=== PATIENT | female | born 1935 | race Caucasian/White ===

== ENCOUNTER 2016-12-12 09:22 | Outpatient (CLI) | payer MEDICARE | END 2016-12-12 09:23 | disposition home or self-care (01) | DX: E87.6 Hypokalemia (principal); E78.5 Hyperlipidemia, unspecified; R00.2 Palpitations; I10 Essential (primary) hypertension ==

== ENCOUNTER 2017-04-10 10:10 | Outpatient (CLI) | payer MEDICARE ==
--- NOTE | 2017-04-11 18:11 | Mammography Report ---
DIGITAL SCREENING MAMMOGRAM: 04/10/2017 CLINICAL INDICATION: An 81-year-old with history of benign cyst aspirations for screening. COMPARISON: 02/2016, 07/2014, 12/2013, 06/2013, 05/2013, 03/2012, 03/2011, 03/2010. TECHNIQUE: Routine CC and MLO projections were obtained of the breasts. The breasts again demonstrate heterogeneously dense fibroglandular parenchyma bilaterally. Coarse an d punctate, typically benign calcifications are present. No suspicious masses, clustered microcalcif ications, or regions of architectural distortion are identified. IMPRESSION: BENIGN FINDINGS. RECOMMENDATION: ROUTINE ANNUAL SCREENING UNLESS OTHERWISE CLINICALLY INDICATED. BIRADS CATEGORY: 2, BENIGN FINDINGS. STANDARD QUALIFYING STATEMENTS 1. This examination was reviewed with the aid of Computed-Aided Detection (CAD). 2. A negative or benign imaging report should not delay biopsy if clinically suspicious findings are present. Consider surgical consultation if warranted. More than 5% of cancers are not identified b y imaging. 3. Dense breasts may obscure an underlying neoplasm. JOB #: [id number] EXT JOB #:[id number]
== END 2017-04-10 10:11 | disposition home or self-care (01) ==
LOC: DI.S 10:10
PROVIDERS: ATTEND Family Medicine
DX: Z12.31 Encounter for screening mammogram for malignant neoplasm of breast (principal)
CPT/HCPCS: 77067

== ENCOUNTER 2018-05-23 10:07 | Outpatient (CLI) | payer MEDICARE ==
--- NOTE | 2018-05-24 13:37 | Mammography Report ---
Reason: SCREENING MAMMO Procedure Date: 05/23/2018 Accession Number: [id number] / [id number] Procedure: MGS - Screening Mammo Dig Bilat CPT Code: FULL RESULT: EXAM: Screening Mammo Dig Bilat DATE: 05/23/2018 10:26 AM CLINICAL HISTORY: 82-year-old female with history of left breast cyst aspiration. TECHNIQUE: Bilateral CC and MLO views were obtained. COMPARISON: 06/13 2013, 12/27/2013, 07/31/2014, 02/23/2016, 04/10/2017. FINDINGS: The breasts demonstrate heterogeneously dense fibroglandular parenchyma bilaterally. Typically benign coarse calcifications are identified bilaterally. No suspicious masses, clustered microcalcifications, or regions of architectural distortion are identified. IMPRESSION: Benign findings RECOMMENDATION: Routine annual screening unless otherwise clinically indicated. BIRADS CATEGORY 2: Benign findings STANDARD QUALIFYING STATEMENTS: 1. This examination was reviewed with the aid of Computer-Aided Detection (CAD). 2. A negative or benign imaging report should not delay biopsy if clinically suspicious findings are present. Consider surgical consultation if warrented. More than 5% of cancers are not identified by imaging. 3. Dense breasts may obscure an underlying neoplasm. 4. This examination was reviewed without the aid of 3D breast imaging (tomosynthesis).
== END 2018-05-23 10:08 | disposition home or self-care (01) ==
LOC: DI.S 10:07
DX: Z12.31 Encounter for screening mammogram for malignant neoplasm of breast (principal)
CPT/HCPCS: 77067

== ENCOUNTER 2018-08-22 08:54 | Outpatient (CLI) | payer MEDICARE ==
[2018-08-22 12:36] LABS: BASOPHILS % (AUTO) 1.1 %; EOSINOPHILS # (AUTO) 0.1 10^3/uL (0.0-0.7); EOSINOPHILS % (AUTO) 2.4 %; LYMPHOCYTES # (AUTO) 1.4 10^3/uL (1.5-3.5); LYMPHOCYTES % (AUTO) 32.3 %; MEAN CORPUSCULAR HGB CONC 33.7 g/dL (32.0-36.0); MEAN CORPUSCULAR VOLUME 91.9 fL (81.0-99.0); MONOCYTES # (AUTO) 0.4 10^3/uL (0.0-1.0); MONOCYTES % (AUTO) 9.8 %; NEUTROPHILS # (AUTO) 2.4 10^3/uL (1.5-6.6); NEUTROPHILS % (AUTO) 54.4 %; PLT - PLATELET COUNT 265 10^3/uL (130-450); RED CELL DISTRIBUTION WIDTH 13.4 % (12.0-15.0); WHITE BLOOD COUNT 4.4 x10^3/uL (4.8-10.8)
[2018-08-22 12:53] LABS: ALBUMIN/GLOBULIN RATIO 1.7 (1.0-2.2); ALKALINE PHOSPHATASE 49 IU/L (42-121); ALT ALANINE AMINOTRANSFERASE 20 IU/L (10-60); AST ASPARTATE AMINOTRANSFERASE 22 IU/L (10-42); BILIRUBIN,TOTAL 0.7 mg/dL (0.2-1.0); BUN - BLOOD UREA NITROGEN 12 mg/dL (6-20); CARBON DIOXIDE - CO2 29 mmol/L (21-32); CHLORIDE 97 mmol/L (101-111); CHOL/HDL RATIO 2.8 (<4.4); CHOLESTEROL 209 mg/dL; CREATININE 0.6 mg/dL (0.4-1.0); GFR - MDRD 96 (>89); GLUCOSE 98 mg/dL (70-100); HDL CHOLESTEROL 74 mg/dL; LDL CHOLESTEROL,CALCULATED 125 mg/dL; LDL/HDL RATIO 1.7 (<4.4); SODIUM 133 mmol/L (135-145); TOTAL PROTEIN 6.4 g/dL (6.7-8.2); VLDL CHOLESTEROL 10 mg/dL
== END 2018-08-22 08:55 | disposition home or self-care (01) ==
LOC: LAB.F 08:54
PROVIDERS: ATTEND Family Medicine
DX: I10 Essential (primary) hypertension (principal); E78.5 Hyperlipidemia, unspecified
CPT/HCPCS: 36415; 80053; 80061; 83721; 85025

== ENCOUNTER 2019-05-07 17:29 | Emergency (ER) | payer MEDICARE ==
[2019-05-07] MEDS ORDERED: cloNIDine 0.1 MG TABLET PO STA (18:25)
--- NOTE | 2019-05-07 18:26 | ED Physician Documentation ---
PD HPI CHEST PAIN - Stated complaint Stated Complaint: UP & DOWN BP - Chief complaint Chief Complaint: Cardiac - History obtained from History obtained from: Patient - History of Present Illness Timing - onset: Today (83-year-old woman with history of hypertension, maintained on metoprolol 12.5 mg twice daily and lisinopril/ hydrochlorothiazide. She is noted high blood pressures at home today associated with a cottony feeling in her head and a strange feeling in her chest without chest pain or trouble breathing. 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 : None HEENT: None Psych: None Musculoskeletal: None Derm: None - Past Surgical History Past Surgical History: Yes General: Appendectomy - Present Medications Home Medications: Ambulatory Orders Medication Instructions Recorded Confirmed Aspirin 81 mg PO DAILY 02/23/14 06/26/16 Lisinopril/Hydrochlorothiazide 10 mg PO DAILY 04/12/15 06/26/16 [Lisinopril-Hctz 10-12.5 mg Tab] Metoprolol Tartrate 25 mg PO BID 06/26/16 06/26/16 Potassium Chloride 10 mg PO DAILY 06/26/16 06/26/16 cloNIDine [Catapres] 0.1 mg PO ONCE PRN #15 tablet 05/07/19 - Allergies Allergies/Adverse Reactions: Allergies Allergy/AdvReac Type Severity Reaction Status Date / Time No Known Drug Allergies Allergy Verified 05/07/19 17:39 - Social History Does the pt smoke?: No Smoking Status: Never smoker Does the pt drink ETOH?: Yes Does the pt have substance abuse?: No - Immunizations Immunizations are current?: Yes - POLST Patient has POLST: No PD ED PE NORMAL - Vitals Vital signs reviewed: Yes - General General: Alert and oriented X 3, No acute distress - HEENT HEENT: PERRL, EOMI - Neck Neck: Supple, no meningeal sign, No bony TTP - Cardiac Cardiac: RRR (With frequent extrasystoles), No murmur - Respiratory Respiratory: No respiratory distress, Clear bilaterally - Abdomen Abdomen: Non tender - Extremities Extremities: No edema, No calf tenderness / cord - Neuro Neuro: Alert and oriented X 3, Normal speech Results - Vitals Vitals: Vital Signs - 24 hr 05/07/19 05/07/19 17:39 18:46 Temperature 36.5 C 36.5 C Heart Rate 80 82 Respiratory 16 14 Rate Blood Pressure 220/72 H 168/80 H O2 Saturation 97 97 Oxygen O2 Source Room air - EKG (time done) 1743 Rate: Rate (enter#) (84) Rhythm: NSR (With frequent PVCs, also note frequent PACs on the monitor.) [place]: Normal Intervals: Normal [place] QRS: Normal Ischemia: Normal ST segments - Labs Labs: Laboratory Tests 05/07/19 05/07/19 05/07/19 18:26 18:26 18:26 WBC 7.8 RBC 4.85 Hgb 14.5 Hct 44.3 MCV 91.3 MCH 29.9 MCHC 32.7 RDW 13.2 Plt Count 252 MPV 9.7 Neut # (Auto) 5.5 Lymph # (Auto) 1.6 [place] # (Auto) 0.6 Eos # (Auto) 0.1 Baso # (Auto) 0.0 Absolute Nucleated RBC 0.00 Nucleated RBC % 0.0 Sodium 136 Potassium 4.0 Chloride 96 L Carbon Dioxide 30 Anion Gap 10.0 BUN 17 Creatinine 0.6 Estimated GFR (MDRD) 96 Glucose 115 H Calcium 9.4 Total Bilirubin 0.5 AST 19 ALT 18 Alkaline Phosphatase 58 Troponin I High Sens 4.8 Total Protein 7.1 Albumin 4.2 Globulin 2.9 Albumin/Globulin Ratio 1.4 Lipase 56 H PD MEDICAL DECISION MAKING - ED course ED course: 83-year-old woman with symptomatic high blood pressure, feeling better after 0.1 mg of clonidine here. If it becomes a recurrent issue I discussed with him that they can talk with her doctor about testing for pheochromocytoma. Did not want to add a new scheduled medication or increase her current medications because sometimes she has normal blood pressures at home. Departure - Departure Disposition: 01 Home, Self Care Clinical Impression: Premature ventricular beat Hypertension Qualifiers: Hypertension type: essential hypertension Qualified Code(s): I10 - Essential (primary) hypertension Condition: Good Record reviewed to determine appropriate education?: Yes Instructions: ED HTN Established Prescriptions: cloNIDine [Catapres] 0.1 mg PO ONCE PRN #15 tablet PRN Reason: hypertension Comments: As discussed, you can add the clonidine for when you have systolic blood pressure greater than 170 and you feel bad. If you are having persistent problems follow-up with Dr. Solis for further evaluation and treatment. Return for new worsening symptoms.
[2019-05-07 18:32] LABS: BASOPHILS % (AUTO) 0.5 %; EOSINOPHILS # (AUTO) 0.1 10^3/uL (0.0-0.7); EOSINOPHILS % (AUTO) 0.6 %; HGB - HEMOGLOBIN 14.5 g/dL (12.0-16.0); LYMPHOCYTES # (AUTO) 1.6 10^3/uL (1.5-3.5); LYMPHOCYTES % (AUTO) 20.8 %; MEAN CORPUSCULAR HEMOGLOBIN 29.9 pg (27.0-31.0); MEAN CORPUSCULAR HGB CONC 32.7 g/dL (32.0-36.0); MEAN CORPUSCULAR VOLUME 91.3 fL (81.0-99.0); MEAN PLATELET VOLUME 9.7 fL (7.9-10.8); MONOCYTES # (AUTO) 0.6 10^3/uL (0.0-1.0); MONOCYTES % (AUTO) 7.5 %; NEUTROPHILS # (AUTO) 5.5 10^3/uL (1.5-6.6); NEUTROPHILS % (AUTO) 70.3 %; PLT - PLATELET COUNT 252 10^3/uL (130-450); RED BLOOD COUNT 4.85 10^6/uL (4.20-5.40); RED CELL DISTRIBUTION WIDTH 13.2 % (12.0-15.0); WHITE BLOOD COUNT 7.8 x10^3/uL (4.8-10.8)
[2019-05-07 18:46] LABS: ALBUMIN 4.2 g/dL (3.2-5.5); ALBUMIN/GLOBULIN RATIO 1.4 (1.0-2.2); BILIRUBIN,TOTAL 0.5 mg/dL (0.2-1.0); CALCIUM 9.4 mg/dL (8.5-10.3); CREATININE 0.6 mg/dL (0.4-1.0); TOTAL PROTEIN 7.1 g/dL (6.7-8.2)
[2019-05-07 19:24] VITALS: BP 137/77
== END 2019-05-07 19:28 | disposition home or self-care (01) ==
LOC: ED 17:29
DX: I49.1 Atrial premature depolarization (principal); I10 Essential (primary) hypertension; Z79.82 Long term (current) use of aspirin
CPT/HCPCS: 36415; 80053; 83690; 84484; 85025; 93005; 99283; 99284; A9270

== ENCOUNTER 2019-06-17 08:30 | Outpatient (CLI) | payer MEDICARE | END 2019-06-17 23:59 | disposition home or self-care (01) | LOC: LAB.R 08:30 | PROVIDERS: ATTEND Family Medicine | DX: I10 Essential (primary) hypertension (principal) | CPT/HCPCS: 81599; 82384 ==

== ENCOUNTER 2020-11-17 07:53 | Outpatient (CLI) | payer MEDICARE ==
[2020-11-17 15:03] LABS: BASOPHILS % (AUTO) 0.8 %; EOSINOPHILS # (AUTO) 0.1 10^3/uL (0.0-0.7); EOSINOPHILS % (AUTO) 1.7 %; HCT - HEMATOCRIT 43.3 % (37.0-47.0); HGB - HEMOGLOBIN 14.1 g/dL (12.0-16.0); LYMPHOCYTES # (AUTO) 1.7 10^3/uL (1.5-3.5); LYMPHOCYTES % (AUTO) 32.1 %; MEAN CORPUSCULAR HEMOGLOBIN 29.9 pg (27.0-31.0); MEAN CORPUSCULAR HGB CONC 32.6 g/dL (32.0-36.0); MEAN CORPUSCULAR VOLUME 91.7 fL (81.0-99.0); MEAN PLATELET VOLUME 11.1 fL (7.9-10.8); MONOCYTES # (AUTO) 0.5 10^3/uL (0.0-1.0); MONOCYTES % (AUTO) 8.8 %; NEUTROPHILS % (AUTO) 56.4 %; PLT - PLATELET COUNT 289 10^3/uL (130-450); RED BLOOD COUNT 4.72 10^6/uL (4.20-5.40); RED CELL DISTRIBUTION WIDTH 12.8 % (12.0-15.0); WHITE BLOOD COUNT 5.2 x10^3/uL (4.8-10.8)
[2020-11-17 15:36] LABS: ALBUMIN/GLOBULIN RATIO 1.4 (1.0-2.2); ALKALINE PHOSPHATASE 53 IU/L (42-121); ALT ALANINE AMINOTRANSFERASE 17 IU/L (10-60); AST ASPARTATE AMINOTRANSFERASE 17 IU/L (10-42); BILIRUBIN,TOTAL 0.9 mg/dL (0.2-1.0); BUN - BLOOD UREA NITROGEN 16 mg/dL (6-20); CALCIUM 9.3 mg/dL (8.5-10.3); CARBON DIOXIDE - CO2 28 mmol/L (21-32); CHLORIDE 99 mmol/L (101-111); CHOL/HDL RATIO 3.4 (<4.4); CHOLESTEROL 236 mg/dL; CREATININE 0.5 mg/dL (0.4-1.0); GFR - MDRD 118 (>89); GLUCOSE 108 mg/dL (70-100); HDL CHOLESTEROL 69 mg/dL; LDL CHOLESTEROL,CALCULATED 147 mg/dL; LDL/HDL RATIO 2.1 (<4.4); POTASSIUM 3.9 mmol/L (3.5-5.0); SODIUM 135 mmol/L (135-145); TOTAL PROTEIN 6.9 g/dL (6.7-8.2); TRIGLYCERIDES 98 mg/dL; VLDL CHOLESTEROL 20 mg/dL
[2020-11-17 15:37] LABS: THYROID STIMULATING HORMONE 1.1 uIU/mL (0.34-5.60)
== END 2020-11-17 07:54 | disposition home or self-care (01) ==
LOC: LAB.S 07:53
PROVIDERS: ATTEND Registered Nurse
DX: E87.6 Hypokalemia (principal); R01.1 Cardiac murmur, unspecified; R00.2 Palpitations; I10 Essential (primary) hypertension; E78.5 Hyperlipidemia, unspecified
CPT/HCPCS: 36415; 80053; 80061; 83721; 84443; 85025

== ENCOUNTER 2021-05-07 07:41 | Outpatient (CLI) | payer MEDICARE ==
[2021-05-07 16:00] LABS: THYROID STIMULATING HORMONE 1.63 uIU/mL (0.34-5.60)
== END 2021-05-07 07:42 | disposition home or self-care (01) ==
LOC: LAB.S 07:41
PROVIDERS: ATTEND Internal Medicine
DX: R03.0 Elevated blood-pressure reading, without diagnosis of hypertension (principal)
CPT/HCPCS: 36415; 82533; 84443

== ENCOUNTER 2021-05-12 09:45 | Outpatient (CLI) | payer MEDICARE | END 2021-05-12 09:46 | disposition critical access hospital (66) | LOC: EMS 09:45 | DX: I10 Essential (primary) hypertension (principal); R42 Dizziness and giddiness | CPT/HCPCS: A0425; A0426; A0429 ==

== ENCOUNTER 2021-05-12 10:20 | Emergency (ER) | payer MEDICARE ==
[2021-05-12 11:02] LABS: BASOPHILS % (AUTO) 0.4 %; EOSINOPHILS # (AUTO) 0.1 10^3/uL (0.0-0.7); EOSINOPHILS % (AUTO) 1.3 %; HCT - HEMATOCRIT 40.5 % (37.0-47.0); HGB - HEMOGLOBIN 13.5 g/dL (12.0-16.0); LYMPHOCYTES # (AUTO) 1.3 10^3/uL (1.5-3.5); LYMPHOCYTES % (AUTO) 28.5 %; MEAN CORPUSCULAR HEMOGLOBIN 29.7 pg (27.0-31.0); MEAN CORPUSCULAR HGB CONC 33.3 g/dL (32.0-36.0); MEAN PLATELET VOLUME 9.4 fL (7.9-10.8); MONOCYTES # (AUTO) 0.6 10^3/uL (0.0-1.0); MONOCYTES % (AUTO) 12.6 %; NEUTROPHILS # (AUTO) 2.5 10^3/uL (1.5-6.6); PLT - PLATELET COUNT 232 10^3/uL (130-450); RED BLOOD COUNT 4.55 10^6/uL (4.20-5.40); RED CELL DISTRIBUTION WIDTH 12.6 % (12.0-15.0); WHITE BLOOD COUNT 4.5 x10^3/uL (4.8-10.8)
--- NOTE | 2021-05-12 11:11 | XRAY Report ---
PROCEDURE: Chest 1 View X-Ray INDICATIONS: Chest pain TECHNIQUE: One view of the chest was acquired. COMPARISON: None FINDINGS: Surgical changes and devices: None. Lungs and pleura: No pleural effusions or pneumothorax. Lungs are clear. Mediastinum: Mediastinal contours appear normal. Heart size is normal. Bones and chest wall: No suspicious bony lesions. Overlying soft tissues appear unremarkable. IMPRESSION: No acute cardiopulmonary process demonstrated radiographically. Reviewed by: Jair Perales MD on 05/12/2021 11:09 AM PDT Approved by: Jair Perales MD on 05/12/2021 11:09 AM PDT Station ID: [id number]
--- NOTE | 2021-05-12 11:11 | ED Physician Documentation ---
PD HPI SYNCOPE - Stated complaint Stated Complaint: DIZZY/WEAKNESS - Chief complaint Chief Complaint: Cardiac - History obtained from History obtained from: Patient - History of Present Illness Witnessed: Unwitnessed Timing - onset: Other (has had feeling of lightheaded and some pressure feeling in head intermittently since yesterday in particular but has had it at times over the past couple of weeks. Takes BP at time with the symptoms and has noted elevated BP with the symptoms. BP about 180-190 systolic. Took CLonidine extra today.) Preceding symptoms: Headache, Light headed (no syncope per se, but feeling lightheaded/pressure. No vertigo consistently but does have that with standing from bending at times.). No: Chest pain, Palpitations, Dyspnea, Abdominal pain, Nausea / vomiting Associated symptoms: No: Chest pain, Palpitations, Dyspnea, Nausea / vomiting Contributing factors: Recent med change (had been to her BP about symptoms last week and told that it was associated with BP elevation. Had med changed: metoprolol stayed same 25 bid, Losartan increased 10mg to now 20 mg, Amlodipine 10 mg bid held, and Clonidine 0.1 mg PO PRN elevated BP.) Similar symptoms before: Has not had sx before Recently seen: Clinic Review of Systems Constitutional: denies: Fever, Chills Eyes: denies: Loss of vision, Decreased vision Nose: reports: Sinus pressure / pain (chronic sinus drainage into top of oral cavity through sinus floor hole (since very young).). 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 : None HEENT: None Psych: None Musculoskeletal: None Derm: None - Past Surgical History Past Surgical History: Yes General: Appendectomy - Present Medications Home Medications: Ambulatory Orders Medication Instructions Recorded Confirmed Aspirin 81 mg PO DAILY 02/23/14 06/26/16 Lisinopril/Hydrochlorothiazide 10 mg PO DAILY 04/12/15 06/26/16 [Lisinopril-Hctz 10-12.5 mg Tab] Metoprolol Tartrate 25 mg PO BID 06/26/16 06/26/16 Potassium Chloride 10 mg PO DAILY 06/26/16 06/26/16 cloNIDine [Catapres] 0.1 mg PO ONCE PRN #15 tablet 05/07/19 - Allergies Allergies/Adverse Reactions: Allergies Allergy/AdvReac Type Severity Reaction Status Date / Time No Known Drug Allergies Allergy Verified 05/12/21 10:43 - Social History Does the pt smoke?: No Smoking Status: Never smoker Does the pt drink ETOH?: Yes Does the pt have substance abuse?: No - Immunizations Immunizations are current?: Yes - POLST Patient has POLST: No PD ED PE NORMAL - Vitals Vital signs reviewed: Yes - General General: Alert and oriented X 3, No acute distress, Well developed/nourished - HEENT HEENT: Atraumatic, Pharynx benign - Neck Neck: Supple, no meningeal sign, No adenopathy - Cardiac Cardiac: RRR, No murmur - Respiratory Respiratory: Clear bilaterally - Abdomen Abdomen: Soft, Non tender - Back Back: No CVA TTP - Derm Derm: Normal color, Warm and dry - Extremities Extremities: No tenderness to palpate, Normal ROM s pain, No edema, No calf tenderness / cord - Neuro Neuro: Alert and oriented X 3, No motor deficit, Normal speech Results - Vitals Vitals: Vital Signs - 24 hr 05/12/21 05/12/21 05/12/21 10:20 11:17 11:30 Temperature 37.0 C Heart Rate 95 75 67 Respiratory 18 19 14 Rate Blood Pressure 133/94 H 94/53 L 154/57 H O2 Saturation 99 93 98 05/12/21 05/12/21 12:26 12:42 Temperature Heart Rate 63 61 Respiratory 16 17 Rate Blood Pressure 142/60 H 117/79 O2 Saturation 97 98 Oxygen O2 Source Room air - EKG (time done) 10:36 Rate: Rate (enter#) (60) Rhythm: NSR [place]: Normal Intervals: Normal [place] QRS: Normal Ischemia: Normal ST segments. No: ST elevation c/w ischemia, ST depression - Labs Labs: Laboratory Tests 05/12/21 05/12/21 05/12/21 10:57 10:57 10:57 WBC 4.5 L RBC 4.55 Hgb 13.5 Hct 40.5 MCV 89.0 MCH 29.7 MCHC 33.3 RDW 12.6 Plt Count 232 MPV 9.4 Neut # (Auto) 2.5 Lymph # (Auto) 1.3 L [place] # (Auto) 0.6 Eos # (Auto) 0.1 Baso # (Auto) 0.0 Absolute Nucleated RBC 0.00 Nucleated RBC % 0.0 Sodium 133 L Potassium 3.9 Chloride 97 L Carbon Dioxide 27 Anion Gap 9.0 BUN 9 Creatinine 0.5 Estimated GFR (MDRD) 118 Glucose 109 H Calcium 9.2 Magnesium Total Bilirubin 0.6 AST 17 ALT 15 Alkaline Phosphatase 47 Troponin I High Sens 3.8 Total Protein 6.7 Albumin 3.8 Globulin 2.9 Albumin/Globulin Ratio 1.3 Lipase 56 H 05/12/21 10:57 WBC RBC Hgb Hct MCV MCH MCHC RDW Plt Count MPV Neut # (Auto) Lymph # (Auto) [place] # (Auto) Eos # (Auto) Baso # (Auto) Absolute Nucleated RBC Nucleated RBC % Sodium Potassium Chloride Carbon Dioxide Anion Gap BUN Creatinine Estimated GFR (MDRD) Glucose Calcium Magnesium 2.3 Total Bilirubin AST ALT Alkaline Phosphatase Troponin I High Sens Total Protein Albumin Globulin Albumin/Globulin Ratio Lipase - Rads (name of study) head CT Radiology: Prelim report reviewed (no acute process, angio portion with only some 50% stenoses upper carotids. No signficant blockages. 3 cm left thyroid mass, suggest outpt [place]/S. ), See rad report PD MEDICAL DECISION MAKING - ED course Complexity details: reviewed results, re-evaluated patient, considered differential (she has noted pattern of symptoms correlating with elevated BP. Had recent med adjustment. Can resume amlopidine at night. Try not to use CLonidine as it got her BP low on presentation. ), d/w patient Departure - Departure Disposition: 01 Home, Self Care Clinical Impression: Light-headed feeling, Frequent PVCs, Fluctuating blood pressure Condition: Stable Record reviewed to determine appropriate education?: Yes Follow-Up: Norm Aguirre MD [Primary Care Provider] - Comments: CT does not show any significant blockages of blood flow, no tumors, no signs of stroke. In the neck area and face, they did notice a small thyroid nodule. Your thyroid blood test recently had been normal though. They did identify the persistent chronic cold that you have in the sinus to the roof of the mouth and that does not seem like it would interplay with any of your symptoms. Regarding the fluctuations of your blood pressure, let us try to adjust your medicines a little bit. Continue your metoprolol 25 mg twice a day. Continue the lisinopril 20 mg daily (its okay to take today's dose). Resume your amlodipine dose just at night, so only once a day. Continue with your magnesium and potassium supplements. Try not to use the clonidine extra. Follow-up with your primary care in the next week or so for recheck. Stay well-hydrated though make sure a no-added salt diet overall. Discharge Date/Time: 05/12/21 13:21
[2021-05-12 11:25] LABS: ALBUMIN 3.8 g/dL (3.2-5.5); ALBUMIN/GLOBULIN RATIO 1.3 (1.0-2.2); BILIRUBIN,TOTAL 0.6 mg/dL (0.2-1.0); CALCIUM 9.2 mg/dL (8.5-10.3); CREATININE 0.5 mg/dL (0.4-1.0); POTASSIUM 3.9 mmol/L (3.5-5.0); TOTAL PROTEIN 6.7 g/dL (6.7-8.2)
[2021-05-12] MEDS ORDERED: METOPROLOL SUCCINATE 25 MG TABLET PO STA (11:45)
[2021-05-12] MEDS ORDERED: IOPAMIDOL-300 100 ML VIAL ONE (11:54)
[2021-05-12] MEDS ORDERED: IOPAMIDOL-300 100 ML VIAL IVP ONE (12:27)
--- NOTE | 2021-05-12 12:37 | CT Report ---
PROCEDURE: ANGIO NECK W INDICATIONS: L sided facial droop CONTRAST: IV CONTRAST: Isovue 300 ml: 80 PO CONTRAST: *NO PO CONTRAST TECHNIQUE: After the administration of intravenous contrast, 1.5 mm axial sections acquired from the aortic arch to the [place]. Coronal 3-D maximum intensity projection (MIP) and/or volume rendering ref ormats were then performed. For radiation dose reduction, the following was used: automated exposur e control, adjustment of mA and/or kV according to patient size. COMPARISON: Correlation is made with the accompanying head CT angiogram, 05/12/2021. FINDINGS: Image quality: Excellent. 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 The origins of the common carotid arteries appear patent. The common [place] arteries demonstrate normal calibers and courses. The bifurcation regions demonstrate dense athe rosclerotic calcification and irregularity. Approximately 50% narrowing can be seen involving each pr oximal internal carotid artery. The more distal internal carotid arteries demonstrate normal course a nd caliber. Posterior circulation: The origins of the vertebral arteries appear patent. Within the right V4 seg ment, there is focal calcification and atherosclerotic irregularity, with approximately 50% narrowing . The more superior portions of the vertebral arteries otherwise demonstrate normal course and calibe r, with the left vertebral artery dominant to the right. They join to form a normal appearing basila r artery. Soft tissues: Visualized neck soft tissues demonstrate no suspicious abnormalities. There is a 3.1 cm low-density lesion seen involving the inferior aspect of the right thyroid, as on series 2 image 5 2. Bones: No suspicious bony lesions. Visualized cervical spine appears normally aligned. Moderate t o prominent lower cervical spine degenerative changes are seen. There is moderate mucosal thickening seen involving the left maxillary sinus. The paranasal sinuses otherwise appear clear. IMPRESSION: Approximately 50% narrowing seen involving each proximal internal carotid artery. There is also approximately 50% narrowing seen involving the right V4 segment. There is a 3.1 cm low-density lesion along the inferior aspect of the right thyroid. When clinically appropriate, a dedicated thyroid ultrasound is recommended for further evaluation. 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 The estimate of stenosis included in the report of the imaging study was calculated using the NASCET method Reviewed by: Hunter Sierra MD on 05/12/2021 11:36 AM RICH Approved by: Hunter Sierra MD on 05/12/2021 11:36 AM RICH Station ID: [id number]
--- NOTE | 2021-05-12 12:41 | CT Report ---
PROCEDURE: ANGIO HEAD W/WO INDICATIONS: L sided facial droop CONTRAST: IV CONTRAST: Isovue 300 ml: 80 PO CONTRAST: *NO PO CONTRAST TECHNIQUE: Precontrast 4.5 mm thick angled axial sections acquired from the foramen magnum to the vertex. Afte r the administration of intravenous contrast, 1 mm thick sections acquired through the [place] is. Postcontrast 4.5 mm thick sections then re-acquired from the foramen magnum to the vertex. 3-di mensional cprxhfc-fvzuoutcc-vnzjhvindp (MIP) and/or volume rendering reformats were acquired of the c entral intracranial vasculature. For radiation dose reduction, the following was used: automated ex posure control, adjustment of mA and/or kV according to patient size. COMPARISON: Prior head CT, 02/23/2014. Correlation is also made with the accompanying head and neck CT angiogram, 05/12/2021 FINDINGS: Image quality: Excellent. Anterior circulation: Intracranial internal carotid arteries are normal in size and flow. The flow within the paired anterior cerebral arteries is normal and symmetric. The flow within the middle cer ebral arteries is normal and symmetric. The anterior communicating artery is seen. No aneurysms are seen. Posterior circulation: There is focal atherosclerotic irregularity and calcification seen involving the right V4 segment, with approximately 50% luminal narrowing. Visualized portions of the vertebral arteries otherwise demonstrate normal caliber, and join to form a normal appearing basilar artery. F low within the posterior cerebral arteries is normal and symmetric. No aneurysms are seen. CSF spaces: Ventricles are normal in size and shape. Basal cisterns are patent. No extra-axial flu id collections. Brain: No midline shift. No intracranial bleeds or masses. [place]-white matter interface appears int act. Skull and face: Calvarium and facial bones appear intact, without suspicious lesions. In this patie nt with this given history, scrutiny is given to the course of the left facial nerve, including withi n the left parotid gland, including on the accompanying neck images. No enhancing masses are seen wit hin the left parotid gland. Sinuses: There is focal moderate mucosal thickening seen involving the left maxillary sinus. There is wall thickening of the left maxillary sinus. There is a patent connection between the left maxillary sinus and the oral cavity, which is better seen on the accompanying neck images. IMPRESSION: No imaging explanation is found for the patient's presenting symptoms. No abnormalities are seen along the course of the left facial nerve. No intracranial hemorrhage is seen. No significant intracranial abnormality is seen. There is seen at approximately 50% narrowing involving the right V4 segment. No additional significan t intracranial arterial abnormalities are seen. If there is strong clinical concern for a stroke, please consider a dedicated brain MRI for further e valuation (assuming that there is no contraindication to MRI). Focal chronic left maxillary sinus disease, including a patent connection between the left maxillary sinus and the oral cavity. Reviewed by: Hunter Sierra MD on 05/12/2021 11:40 AM RICH Approved by: Hunter Sierra MD on 05/12/2021 11:40 AM RICH Station ID: [id number]
[2021-05-12 12:42] VITALS: BP 117/79
== END 2021-05-12 13:21 | disposition home or self-care (01) ==
LOC: EDUNIT# → ED 10:20
DX: I49.3 Ventricular premature depolarization (principal); I10 Essential (primary) hypertension
CPT/HCPCS: 36415; 70496; 70498; 71045; 80053; 83690; 83735; 84484; 85025; 93005; 99284; A9270; Q9967

== ENCOUNTER 2021-05-23 12:56 | Outpatient (CLI) | payer MEDICARE ==
--- NOTE | 2021-05-23 19:13 | Ultrasound Report ---
PROCEDURE: Head or Neck Soft Tissue INDICATIONS: THYROID NODULE TECHNIQUE: Real-time scanning was performed of the thyroid gland, with image documentation. COMPARISON: None FINDINGS: Right: Thyroid lobe measures 5.9 x 3.3 x 1.7 cm, and is homogeneous in echotexture. Left: Thyroid lobe measures 4.6 x 2.2 x 1.7 cm, and is homogenous in echotexture. Isthmus: 6 mm thick. Nodule number: One Location: Mid isthmus Size: 0.7 x 0.5 x 0.9 cm. Composition: Solid Echogenicity: Hypoechoic Shape: wider than tall. Margins: Smooth Echogenic foci: None Total points: 4 ACR TI-RADS category: 4 Nodule number: Two Location: Right inferior Size: 3.2 x 2.9 x 2.6 cm. Composition: Predominantly solid Echogenicity: Hypoechoic Shape: Wider than tall Margins: Lobulated Echogenic foci: None Total points: 6 ACR TI-RADS category: 4 Nodule number: Three Location: Location Size: 0.9 x 0.7 cm. Composition: Solid Echogenicity: Hyperechoic Shape: wider than tall. Margins: Smooth Echogenic foci: Microcalcifications Total points: 4 ACR TI-RADS category: 4 Nodule number: Four Location: Left mid Size: 1.0 x 1.3 x 1.0 cm. Composition: Solid Echogenicity: Hypoechoic Shape: Wider than tall Margins: Smooth Echogenic foci: None Total points: 4 ACR TI-RADS category: 4 Nodule number: 5 Location: Left inferior Size: 2.2 x 1.7 x 1.7 cm. Composition: solid Echogenicity: Hypoechoic Shape: wider than tall. Margins: Lobulated Echogenic foci: Microcalcifications Total points: 7 ACR TI-RADS category: 5 IMPRESSION: Left anterior 2.2 cm solid thyroid nodule is TI-RADS category 5. FNA recommended. Right inferior 3.2 cm solid thyroid nodule is TI-RADS category 4. FNA recommended ACR TI-RADS definitions and recommendations: TI-RADS 1 (benign): 0 points. FNA not needed. TI-RADS 2 (not suspicious): 2 points. FNA not needed. TI-RADS 3 (mildly suspicious): 3 points. "FNA if 2.5 cm or larger, follow up if 1.5 cm or larger (at 1, 3, and 5 years). TI-RADS 4 (moderately suspicious): 4-6 points. "FNA if 1.5 cm or larger, follow up if 1 cm or larger (at 1, 2, 3, and 5 years). TI-RADS 5 (highly suspicious): 7 points or more. "FNA if 1 cm or larger, follow up if 0.5 cm or larger (every year for 5 years). Reviewed by: Jose Peterson MD on 05/23/2021 6:11 PM RICH Approved by: Jose Peterson MD on 05/23/2021 6:11 PM RICH Station ID: [id number]
== END 2021-05-23 12:57 | disposition home or self-care (01) ==
LOC: DI 12:56
PROVIDERS: ATTEND Internal Medicine
DX: E04.2 Nontoxic multinodular goiter (principal)

== ENCOUNTER 2021-05-26 21:04 | Outpatient (CLI) | payer MEDICARE | END 2021-05-26 21:05 | disposition critical access hospital (66) | LOC: EMS 21:04 | DX: I10 Essential (primary) hypertension (principal) | CPT/HCPCS: A0425; A0429 ==

== ENCOUNTER 2021-05-26 21:37 | Emergency (ER) | payer MEDICARE ==
--- NOTE | 2021-05-26 22:02 | ED Physician Documentation ---
PD HPI HEADACHE - Stated complaint Stated Complaint: DIZZY, HIGH BLOOD PRESSURE - Chief complaint Chief Complaint: Cardiac - History obtained from History obtained from: Patient - History of Present Illness Timing - onset: How many hours ago (she states her BP was very elevated at home with feeling of pressure/fullness in head. Has had similar with high BP in the past and has been trying to get BP balanced with PMD over past month or so. No chest pain, dyspnea, edema.) Timing - onset during: Light activity Timing - details: Gradual onset, Still present, Waxing and waning Worst headache ever?: No: Worst headache ever? Location: Front Quality: Tightness Associated symptoms: No: Fever, Stiff neck, Nausea, Weakness, Numbness, Vision changes Contributing factors: No: Recent illness, Trauma Similar symptoms before: Diagnosis (symptoms in the past associated with elevated BP. It was elevated this evening at home from 180s up to 210 systolic.) Recently seen: Clinic Review of Systems Constitutional: denies: Fever, Chills Nose: denies: Rhinorrhea / runny nose, Congestion Throat: denies: Sore throat Cardiac: denies: Chest pain / pressure, Pedal edema, Calf pain Respiratory: denies: Dyspnea, Cough GI: denies: Vomiting, Diarrhea, Bloody / black stool Neurologic: denies: Focal weakness, Numbness, Near syncope, Altered mental status PD PAST MEDICAL HISTORY - Past Medical History Past Medical History: Yes Cardiovascular: Hypertension Respiratory: None Endocrine/Autoimmune: None GI: None 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 : None HEENT: None Psych: None Musculoskeletal: None Derm: None - Past Surgical History Past Surgical History: Yes General: Appendectomy - Present Medications Home Medications: Ambulatory Orders Medication Instructions Recorded Confirmed Aspirin 81 mg PO DAILY 02/23/14 05/26/21 Lisinopril/Hydrochlorothiazide 10 mg PO DAILY 04/12/15 05/26/21 [Lisinopril-Hctz 10-12.5 mg Tab] Metoprolol Tartrate 25 mg PO BID 06/26/16 05/26/21 Amlodipine Besylate [Norvasc] 2.5 mg PO DAILY 05/26/21 05/26/21 - Allergies Allergies/Adverse Reactions: Allergies Allergy/AdvReac Type Severity Reaction Status Date / Time No Known Drug Allergies Allergy Verified 05/26/21 21:44 - Social History Does the pt smoke?: No Smoking Status: Never smoker Does the pt drink ETOH?: Yes Does the pt have substance abuse?: No - Immunizations Immunizations are current?: Yes - POLST Patient has POLST: No PD ED PE NORMAL - Vitals Vital signs reviewed: Yes - General General: Alert and oriented X 3, No acute distress, Well developed/nourished - HEENT HEENT: Moist mucous membranes, Pharynx benign - Neck Neck: Supple, no meningeal sign, No adenopathy - Cardiac Cardiac: RRR, No murmur - Respiratory Respiratory: Clear bilaterally - Abdomen Abdomen: Soft, Non tender - Derm Derm: Normal color, Warm and dry - Extremities Extremities: No tenderness to palpate, No edema, No calf tenderness / cord - Neuro Neuro: Alert and oriented X 3, 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, No motor deficit, Normal speech Eye Opening: Spontaneous Motor: Obeys Commands Verbal: Oriented GCS Score: 15 - Psych Psych: No: Normal affect (anxious) Results - Vitals Vitals: Vital Signs - 24 hr 05/26/21 05/26/21 05/26/21 21:38 21:41 22:07 Temperature 36.0 C L Heart Rate 65 86 Respiratory 18 22 Rate Blood Pressure 187/91 H 173/99 H Blood Pressure 173/99 H [Left] Blood Pressure 181/97 H [Right] O2 Saturation 97 95 05/26/21 05/26/21 05/26/21 22:27 22:33 22:58 Temperature Heart Rate 67 66 64 Respiratory 17 15 15 Rate Blood Pressure 163/87 H 161/87 H 117/72 Blood Pressure [Left] Blood Pressure [Right] O2 Saturation 97 97 97 05/26/21 23:13 Temperature Heart Rate 66 Respiratory 17 Rate Blood Pressure 142/76 H Blood Pressure [Left] Blood Pressure [Right] O2 Saturation 95 Oxygen O2 Source Room air - EKG (time done) 21:39 Rate: Rate (enter#) (66) Rhythm: NSR, Other (frequent PVCs unifocal. ) Intervals: Normal SD Ischemia: Normal ST segments. No: ST elevation c/w ischemia, ST depression Compare to prior EKG: Unchanged from prior EKG - Labs Labs: Laboratory Tests 05/26/21 05/26/21 05/26/21 22:09 22:09 22:09 WBC 9.5 RBC 4.83 Hgb 14.2 Hct 43.6 MCV 90.3 MCH 29.4 MCHC 32.6 RDW 12.5 Plt Count 270 MPV 9.7 Neut # (Auto) 7.3 H Lymph # (Auto) 1.4 L [place] # (Auto) 0.7 Eos # (Auto) 0.1 Baso # (Auto) 0.0 Absolute Nucleated RBC 0.00 Nucleated RBC % 0.0 Sodium 132 L Potassium 3.7 Chloride 94 L Carbon Dioxide 30 Anion Gap 8.0 BUN 12 Creatinine 0.6 Estimated GFR (MDRD) 95 Glucose 119 H Calcium 9.4 Magnesium Total Bilirubin 0.5 AST 17 ALT 16 Alkaline Phosphatase 59 Troponin I High Sens 3.7 Total Protein 6.8 Albumin 4.0 Globulin 2.8 Albumin/Globulin Ratio 1.4 Lipase 66 H 05/26/21 22:09 WBC RBC Hgb Hct MCV MCH MCHC RDW Plt Count MPV Neut # (Auto) Lymph # (Auto) [place] # (Auto) Eos # (Auto) Baso # (Auto) Absolute Nucleated RBC Nucleated RBC % Sodium Potassium Chloride Carbon Dioxide Anion Gap BUN Creatinine Estimated GFR (MDRD) Glucose Calcium Magnesium 2.2 Total Bilirubin AST ALT Alkaline Phosphatase Troponin I High Sens Total Protein Albumin Globulin Albumin/Globulin Ratio Lipase - Rads (name of study) hest xray Radiology: Prelim report reviewed (normal), See rad report PD MEDICAL DECISION MAKING - ED course Complexity details: reviewed results, re-evaluated patient (over-corrected with BP down to 117 systolic, but without symptoms. IV fluid small amount and BP at 140s systolic. She is feeling okay. ), considered differential (labile BP. could consider UMU or heart related. Consider outpt U/S through PMD. She also requests Cardiology referral, but has seen Dr. Rutledge remotely in the past, so to call that office for follow up. ), d/w patient ED course: Patient anxious about BP when gets elevated. Has had Clonidine in prior ED visits for temporary improvement in BP. I also feel some decreased sympathetic effect would help, so gave morphine 2 mg IV. Departure - Departure Disposition: 01 Home, Self Care Clinical Impression: Frequent PVCs, Light-headed feeling, Fluctuating blood pressure Condition: Stable Record reviewed to determine appropriate education?: Yes Follow-Up: Norm Aguirre MD [Credentialed Staff Provider] - Rian Rutledge MD [Provider Admit Priv/Credential] - Comments: Be sure to not take your blood pressure more than couple of times a day. Continue your current medication regimen. Stay well-hydrated. You can contact your primary care provider for follow-up. Return to the ER if you have headache, chest pain, shortness of breath, fainting or other concerns, either on their own or in conjunction with the BP being elevated. Also contact Dr. Rutledge's office for follow-up. See if they are able to see you or if they need a referral from your primary care. That would be another source for an opinion on blood pressure management. Discharge Date/Time: 05/26/21 23:37
--- NOTE | 2021-05-26 22:08 | XRAY Report ---
PROCEDURE: Chest 1 View X-Ray INDICATIONS: Chest pain TECHNIQUE: One view of the chest was acquired. COMPARISON: 05/12/2021 FINDINGS: Surgical changes and devices: None. Lungs and pleura: No pleural effusions or pneumothorax. Lungs are clear. Mediastinum: Mediastinal contours appear normal. Heart size is normal. Bones and chest wall: No suspicious bony lesions. Overlying soft tissues appear unremarkable. IMPRESSION: No acute cardiopulmonary process demonstrated radiographically. Reviewed by: Jair Perales MD on 05/26/2021 10:07 PM PDT Approved by: Jair Perales MD on 05/26/2021 10:07 PM PDT Station ID: [id number]
[2021-05-26] MEDS ORDERED: MORPHINE 2 MG/ML CARPUJECT IVP STA (22:12)
[2021-05-26 22:13] LABS: BASOPHILS % (AUTO) 0.4 %; EOSINOPHILS # (AUTO) 0.1 10^3/uL (0.0-0.7); EOSINOPHILS % (AUTO) 0.9 %; HCT - HEMATOCRIT 43.6 % (37.0-47.0); HGB - HEMOGLOBIN 14.2 g/dL (12.0-16.0); LYMPHOCYTES # (AUTO) 1.4 10^3/uL (1.5-3.5); MEAN CORPUSCULAR HEMOGLOBIN 29.4 pg (27.0-31.0); MEAN CORPUSCULAR HGB CONC 32.6 g/dL (32.0-36.0); MEAN CORPUSCULAR VOLUME 90.3 fL (81.0-99.0); MEAN PLATELET VOLUME 9.7 fL (7.9-10.8); MONOCYTES # (AUTO) 0.7 10^3/uL (0.0-1.0); MONOCYTES % (AUTO) 7.3 %; NEUTROPHILS # (AUTO) 7.3 10^3/uL (1.5-6.6); NEUTROPHILS % (AUTO) 76.2 %; PLT - PLATELET COUNT 270 10^3/uL (130-450); RED BLOOD COUNT 4.83 10^6/uL (4.20-5.40); RED CELL DISTRIBUTION WIDTH 12.5 % (12.0-15.0); WHITE BLOOD COUNT 9.5 x10^3/uL (4.8-10.8)
[2021-05-26] MEDS ORDERED: cloNIDine 0.1 MG TABLET PO STA (22:14)
[2021-05-26 22:30] LABS: ALBUMIN/GLOBULIN RATIO 1.4 (1.0-2.2); BILIRUBIN,TOTAL 0.5 mg/dL (0.2-1.0); CALCIUM 9.4 mg/dL (8.5-10.3); CREATININE 0.6 mg/dL (0.4-1.0); POTASSIUM 3.7 mmol/L (3.5-5.0); TOTAL PROTEIN 6.8 g/dL (6.7-8.2)
[2021-05-26] MEDS ORDERED: SODIUM CHLORIDE 0.9% 250 ML IV STA (22:59)
[2021-05-26 23:13] VITALS: BP 142/76
== END 2021-05-26 23:37 | disposition home or self-care (01) ==
LOC: EDUNIT# → ED 21:37
DX: I10 Essential (primary) hypertension (principal); R42 Dizziness and giddiness; I49.3 Ventricular premature depolarization; F41.9 Anxiety disorder, unspecified; Z79.82 Long term (current) use of aspirin
CPT/HCPCS: 36415; 71045; 80053; 83690; 83735; 84484; 85025; 93005; 96374; 99284; A9270; 81599; 82570; 83497

== ENCOUNTER 2021-06-20 07:54 | Outpatient (CLI) | payer MEDICARE ==
--- NOTE | 2021-06-20 11:30 | Ultrasound Report ---
PROCEDURE: Arterial Visceral Complete INDICATIONS: ESSENTIAL HYPERTENSION TECHNIQUE: Real time scanning was performed of both kidneys, followed by Color and pulsed Doppler in terrogation of the renal vessels. COMPARISON: None available at time of dictation. FINDINGS: Aortic peak systolic velocity: 109.9 cm/s. Right side: Granger-scale imaging: Kidney is 11.4 cm long; renal cortical thickness is 1.4 cm. No hydronephrosis. No nephrolithiasis. Renal cortex is normal in echogenicity. No suspicious solid renal masses. Proximal renal artery peak systolic velocity: 115.7 cm/s. Mid renal artery peak systolic velocity: 119.6 cm/s. Distal renal artery peak systolic velocity: 75.2 cm/s. Renal vein: Patent, without thrombus. Peak renal/aortic ratio (RAR): 1.1. Left side: Granger-scale imaging: Kidney is 11.6 cm long; renal cortical thickness is 1.4 cm. No hydronephrosis. Calcification within the inferior pole consistent with nonobstructing nephrolith measuring 5 mm in gr eatest diameter. Multiple anechoic simple appearing cysts are noted within the kidneys. There is an i nferior pole cyst with a single thin septation measuring 2.8 cm in greatest diameter. Proximal renal artery peak systolic velocity: 142.4 cm/s. Mid-renal artery peak systolic velocity: 91.4 cm/s. Distal renal artery peak systolic velocity: 46.4 cm/s. Renal vein: Patent, without thrombus. The left renal vein appears compressed by the overlying super ior mesenteric artery with a distance of approximately 5 mm between the aorta and superior mesenteric artery. There is dilation of the renal veins distally. Peak renal/aortic ratio (RAR): 1.3. IMPRESSION: No evidence of significant renal artery stenosis. 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 Nonobstructing left inferior pole nephrolith measuring 5 mm. Multiple left-sided cysts. This includes a mildly complex 2.8 cm inferior pole cyst with a single thi n septation. Correlating to CT findings would be considered a Bosniak 2 cyst. Reviewed by: Pedro Jensen DO on 06/20/2021 10:29 AM RICH Approved by: Pedro Jensen DO on 06/20/2021 10:29 AM RICH Station ID: [id number]
--- NOTE | 2021-06-20 11:34 | Ultrasound Report ---
PROCEDURE: Carotid Doppler Complete INDICATIONS: ESSENTIAL HYPERTENSION TECHNIQUE: Color and pulse Doppler interrogation was performed of both carotid systems, with image documentation and velocity measurements. COMPARISON: None. FINDINGS: Right side: Brachial blood pressure: 176/79 mm Hg. Common carotid artery peak systolic velocity: 71.2 cm/sec. Internal carotid artery peak systolic velocity: 75.7 cm/sec. Internal carotid artery end diastolic velocity: 16.2 cm/sec. External carotid artery peak systolic velocity: 82.2 cm/sec. ICA/CCA peak systolic ratio: 1.1 . Granger scale imaging description: Mild atherosclerosis noted at the carotid bulb. No significant steno sis. Percent internal carotid artery stenosis: No significant stenosis Vertebral artery: Flow direction is antegrade. Left side: Brachial blood pressure: 161/75 mm Hg. Common carotid artery peak systolic velocity: 95.6 cm/sec. Internal carotid artery peak systolic velocity: 80.3 cm/sec. Internal carotid artery end diastolic velocity: 25.2 cm/sec. External carotid artery peak systolic velocity: 67.3 cm/sec. ICA/CCA peak systolic ratio: 0.8 . Granger scale imaging description: Mild atherosclerosis bilateral carotid bulb. No significant stenosis . Percent internal carotid artery stenosis: No significant stenosis. Vertebral artery: Flow direction is antegrade. IMPRESSION: Minimal atherosclerosis noted at the carotid bulbs without evidence of significant stenosis by visual velocity criteria. Reviewed by: Pedro Jensen DO on 06/20/2021 10:32 AM RICH Approved by: Pedro Jensen DO on 06/20/2021 10:32 AM RICH Station ID: [id number]
== END 2021-06-20 07:55 | disposition home or self-care (01) ==
LOC: DI 07:54
PROVIDERS: ATTEND Internal Medicine Cardiovascular Disease
DX: I10 Essential (primary) hypertension (principal)
CPT/HCPCS: 93880; 93975

== ENCOUNTER 2021-06-20 07:56 | Outpatient (CLI) | payer MEDICARE ==
--- NOTE | 2021-06-20 11:57 | Ultrasound Report ---
PROCEDURE: Head or Neck Soft Tissue INDICATIONS: THYROID NODULE TECHNIQUE: Real-time scanning was performed of the thyroid gland, with image documentation. COMPARISON: 05/23/2021 FINDINGS: Right: Thyroid lobe measures 5.7 x 3.6 x 1.9 cm, and is homogenous in echotexture. Left: Thyroid lobe measures 4.6 x 1.7 x 1.9 cm, and is homogenous in echotexture. Isthmus: 8 mm mm thick. Nodule number: One Location: Inferior isthmus Size: 0.9 x 0.5 x 0.8, previously 0.7 x 0.5 x 0.9 cm. Composition: Solid Echogenicity: Hypoechoic Shape: Wider than tall. Margins: Smooth Echogenic foci: None Total points: 4 ACR TI-RADS category: 4 Nodule number: Two Location: Right inferior thyroid Size: 3.1 x 3.4 x 2.6, previously 3.2 x 2.9 x 2.6 cm. Composition: Predominantly solid Echogenicity: Hypoechoic Shape: wider than tall. Margins: Lobulated Echogenic foci: None Total points: 6 ACR TI-RADS category: 4 Nodule number: Three Location: Left superior thyroid Size: 0.9 x 0.7, previously 0.9 x 0.7 cm. Composition: Solid Echogenicity: Hyperechoic Shape: Unknown Margins: Smooth Echogenic foci: Macrocalcifications Total points: 4 ACR TI-RADS category: 4 Nodule number: 4 Location: Left mid thyroid laterally Size: 1.5 x 1.1 x 1.0, previously 1.0 x 1.3 x 1.0 cm. Composition: Solid Echogenicity: Hypoechoic Shape: wider than tall. Margins: Smooth Echogenic foci: None Total points: 4 ACR TI-RADS category: 4 Nodule number: Five Location: Left inferior thyroid Size: 2.2 x 1.7 x 2.1, previously 2.2 x 1.7 x 1.7 cm. Composition: Predominantly solid Echogenicity: Hypoechoic Shape: Wider than tall Margins: Lobulated Echogenic foci: Macrocalcifications Total points: 7 ACR TI-RADS category: 5 IMPRESSION: No significant interval change of thyroid gland with multiple thyroid nodules. This includes a 2.2 cm left inferior thyroid nodule which is TI-RADS category 5. FNA recommended. Additional right inferior 3.4 cm TI-RADS category 5 nodule. FNA recommended. ACR TI-RADS definitions and recommendations: TI-RADS 1 (benign): 0 points. FNA not needed. TI-RADS 2 (not suspicious): 2 points. FNA not needed. TI-RADS 3 (mildly suspicious): 3 points. "FNA if 2.5 cm or larger, follow up if 1.5 cm or larger (at 1, 3, and 5 years). TI-RADS 4 (moderately suspicious): 4-6 points. "FNA if 1.5 cm or larger, follow up if 1 cm or larger (at 1, 2, 3, and 5 years). TI-RADS 5 (highly suspicious): 7 points or more. "FNA if 1 cm or larger, follow up if 0.5 cm or larger (every year for 5 years). Reviewed by: Pedro Jensen DO on 06/20/2021 10:56 AM RICH Approved by: Pedro Jensen DO on 06/20/2021 10:56 AM RICH Station ID: [id number]
== END 2021-06-20 07:57 | disposition home or self-care (01) ==
LOC: DI 07:56
PROVIDERS: ATTEND Internal Medicine
DX: E04.2 Nontoxic multinodular goiter (principal); I10 Essential (primary) hypertension; N28.1 Cyst of kidney, acquired
CPT/HCPCS: 93880; 93975

== ENCOUNTER 2022-10-28 08:00 | Outpatient (CLI) | payer MEDICARE | END 2022-10-28 23:59 | disposition home or self-care (01) | LOC: LAB 08:00 | PROVIDERS: ATTEND Registered Nurse | DX: Z77.111 Contact with and (suspected) exposure to water pollution (principal) | CPT/HCPCS: 81599; 82175 ==

== ENCOUNTER 2023-04-07 07:23 | Outpatient (CLI) | payer MEDICARE ==
[2023-04-07 14:26] LABS: BASOPHILS % (AUTO) 0.9 %; EOSINOPHILS # (AUTO) 0.1 10^3/uL (0.0-0.7); EOSINOPHILS % (AUTO) 1.9 %; HCT - HEMATOCRIT 43.2 % (37.0-47.0); HGB - HEMOGLOBIN 13.8 g/dL (12.0-16.0); LYMPHOCYTES # (AUTO) 1.6 10^3/uL (1.5-3.5); LYMPHOCYTES % (AUTO) 38.2 %; MEAN CORPUSCULAR HEMOGLOBIN 29.3 pg (27.0-31.0); MEAN CORPUSCULAR HGB CONC 31.9 g/dL (32.0-36.0); MEAN CORPUSCULAR VOLUME 91.7 fL (81.0-99.0); MONOCYTES # (AUTO) 0.4 10^3/uL (0.0-1.0); MONOCYTES % (AUTO) 9.4 %; NEUTROPHILS # (AUTO) 2.1 10^3/uL (1.5-6.6); NEUTROPHILS % (AUTO) 49.6 %; PLT - PLATELET COUNT 312 10^3/uL (130-450); RED BLOOD COUNT 4.71 10^6/uL (4.20-5.40); WHITE BLOOD COUNT 4.2 x10^3/uL (4.8-10.8)
[2023-04-07 14:42] LABS: ALBUMIN/GLOBULIN RATIO 1.5 (1.0-2.2); ALKALINE PHOSPHATASE 52 IU/L (42-121); ALT ALANINE AMINOTRANSFERASE 12 IU/L (10-60); AST ASPARTATE AMINOTRANSFERASE 16 IU/L (10-42); BILIRUBIN,TOTAL 0.5 mg/dL (0.2-1.0); BUN - BLOOD UREA NITROGEN 16 mg/dL (6-20); CALCIUM 9.6 mg/dL (8.5-10.3); CARBON DIOXIDE - CO2 31 mmol/L (21-32); CHLORIDE 102 mmol/L (101-111); CHOL/HDL RATIO 3.1 (<4.4); CHOLESTEROL 217 mg/dL; CREATININE 0.6 mg/dL (0.6-1.3); GFR - MDRD 95 (>89); GLUCOSE 98 mg/dL (74-104); HDL CHOLESTEROL 69 mg/dL; LDL CHOLESTEROL,CALCULATED 127 mg/dL; LDL/HDL RATIO 1.8 (<4.4); SODIUM 136 mmol/L (135-145); TOTAL PROTEIN 6.6 g/dL (6.4-8.9); TRIGLYCERIDES 105 mg/dL (48-352); VLDL CHOLESTEROL 21 mg/dL
[2023-04-07 14:56] LABS: THYROID STIMULATING HORMONE 0.96 uIU/mL (0.34-5.60)
== END 2023-04-07 07:24 | disposition home or self-care (01) ==
LOC: LAB.S 07:23
PROVIDERS: ATTEND Registered Nurse
DX: E04.1 Nontoxic single thyroid nodule (principal); Z79.899 Other long term (current) drug therapy; Z13.220 Encounter for screening for lipoid disorders; Z77.111 Contact with and (suspected) exposure to water pollution
CPT/HCPCS: 36415; 80053; 80061; 83721; 84443; 85025

== ENCOUNTER 2024-04-10 07:19 | Outpatient (CLI) | payer MEDICARE ==
[2024-04-10 13:58] LABS: BASOPHILS % (AUTO) 0.4 %; EOSINOPHILS % (AUTO) 0.8 %; HCT - HEMATOCRIT 41.3 % (37.0-47.0); HGB - HEMOGLOBIN 13.6 g/dL (12.0-16.0); LYMPHOCYTES # (AUTO) 1.4 10^3/uL (1.5-3.5); LYMPHOCYTES % (AUTO) 26.7 %; MEAN CORPUSCULAR HEMOGLOBIN 29.8 pg (27.0-31.0); MEAN CORPUSCULAR HGB CONC 32.9 g/dL (32.0-36.0); MEAN CORPUSCULAR VOLUME 90.4 fL (81.0-99.0); MONOCYTES # (AUTO) 0.5 10^3/uL (0.0-1.0); MONOCYTES % (AUTO) 9.1 %; NEUTROPHILS # (AUTO) 3.2 10^3/uL (1.5-6.6); NEUTROPHILS % (AUTO) 62.8 %; PLT - PLATELET COUNT 317 10^3/uL (130-450); RED BLOOD COUNT 4.57 10^6/uL (4.20-5.40); RED CELL DISTRIBUTION WIDTH 12.9 % (12.0-15.0); WHITE BLOOD COUNT 5.1 x10^3/uL (4.8-10.8)
[2024-04-10 14:14] LABS: ALBUMIN/GLOBULIN RATIO 1.5 (1.0-2.2); ALKALINE PHOSPHATASE 48 IU/L (42-121); ALT ALANINE AMINOTRANSFERASE 13 IU/L (10-60); AST ASPARTATE AMINOTRANSFERASE 16 IU/L (10-42); BILIRUBIN,TOTAL 0.5 mg/dL (0.2-1.0); BUN - BLOOD UREA NITROGEN 10 mg/dL (6-20); CALCIUM 9.4 mg/dL (8.5-10.3); CARBON DIOXIDE - CO2 31 mmol/L (21-32); CHLORIDE 97 mmol/L (101-111); CHOL/HDL RATIO 2.9 (<4.4); CHOLESTEROL 228 mg/dL; CREATININE 0.5 mg/dL (0.6-1.3); GFR - MDRD 117 (>89); GLUCOSE 106 mg/dL (74-104); HDL CHOLESTEROL 78 mg/dL; LDL CHOLESTEROL,CALCULATED 132 mg/dL; LDL/HDL RATIO 1.7 (<4.4); POTASSIUM 4.3 mmol/L (3.5-4.5); SODIUM 131 mmol/L (135-145); TOTAL PROTEIN 6.7 g/dL (6.4-8.9); TRIGLYCERIDES 90 mg/dL; VLDL CHOLESTEROL 18 mg/dL
[2024-04-10 14:18] LABS: THYROID STIMULATING HORMONE 0.98 uIU/mL (0.34-5.60)
== END 2024-04-10 07:20 | disposition home or self-care (01) ==
LOC: LAB.S 07:19
PROVIDERS: ATTEND Registered Nurse
DX: Z13.228 Encounter for screening for other metabolic disorders (principal); Z13.220 Encounter for screening for lipoid disorders; Z13.29 Encounter for screening for other suspected endocrine disorder; Z13.0 Encounter for screening for diseases of the blood and blood-forming organs and certain disorders involving the immune mechanism
CPT/HCPCS: 36415; 80053; 80061; 83721; 84443; 85025

== ENCOUNTER 2024-05-14 12:50 | Outpatient (CLI) | payer MEDICARE | END 2024-05-14 12:51 | disposition home or self-care (01) | LOC: DI 12:50 | PROVIDERS: ATTEND Registered Nurse | DX: R03.0 Elevated blood-pressure reading, without diagnosis of hypertension (principal) | CPT/HCPCS: 93307 ==